=== PATIENT | male | born 1960 | race Caucasian/White ===

== ENCOUNTER → 2016-05-25 | Outpatient (CLI) | payer OTHER | LOC: MRI 07:22 | DX: M54.16 Radiculopathy, lumbar region (principal); M47.896 Other spondylosis, lumbar region; M54.5 Low back pain ==

== ENCOUNTER → 2016-06-06 | Outpatient (CLI) | payer OTHER | LOC: RAD 10:29 | DX: M47.26 Other spondylosis with radiculopathy, lumbar region (principal); M54.5 Low back pain ==